=== PATIENT | male | born 1985 | race African-American/Black ===

== ENCOUNTER 2016-09-14 01:38 | Emergency (ER) | payer OTHER ==
[~2016-09-14] VITALS: Ht 180.3 cm; Wt 96.3 kg
[2016-09-14 01:40] VITALS: BP 139/80
== END 2016-09-14 03:28 | disposition home or self-care (01) ==
LOC: EME 01:38
PROC: 0HQFXZZ Repair Right Hand Skin, External Approach (ICD-10-PCS; principal; 2016-09-14)
DX: S61.212A Laceration without foreign body of right middle finger without damage to nail, initial encounter (principal); S61.214A Laceration without foreign body of right ring finger without damage to nail, initial encounter; S61.216A Laceration without foreign body of right little finger without damage to nail, initial encounter; V48.0XXA Car driver injured in noncollision transport accident in nontraffic accident, initial encounter; Y92.411 Interstate highway as the place of occurrence of the external cause
CPT/HCPCS: 73130; 99281; 99283